=== PATIENT | male | born 1985 | race Asian ===

== ENCOUNTER 2020-08-25 22:58 | Emergency (ER) | payer SELFPAY ==
[~2020-08-25] VITALS: Ht 167.6 cm; Wt 127.0 kg
[2020-08-25 23:06] VITALS: Ht 167.6 cm; Wt 127.0 kg
[2020-08-25 23:57] VITALS: BP 139/91
== END 2020-08-25 23:57 | disposition home or self-care (01) ==
LOC: ED 22:58
DX: S83.001A Unspecified subluxation of right patella, initial encounter (principal); X50.1XXA Overexertion from prolonged static or awkward postures, initial encounter; Y93.89 Activity, other specified; Y92.89 Other specified places as the place of occurrence of the external cause; Y99.8 Other external cause status
CPT/HCPCS: Q0092